=== PATIENT | female | born 1955 | race Caucasian/White ===

== ENCOUNTER 2018-03-14 16:21 | Observation (INO) | payer OTHER ==
[~2018-03-14] VITALS: Ht 167.6 cm; Wt 136.1 kg
[2018-03-14] MEDS ORDERED: IPRATROPIUM BROMIDE 0.02% 2.5 ML NEB NEB ONE (17:00)
[2018-03-14] MEDS ORDERED: LEVALBUTEROL HCL SOLN NEBU 1.25 MG/3 ML NEB INH ONE (17:00)
[2018-03-14] MEDS ORDERED: DEXAMETHASONE SOD PHOS 10 MG/1 ML VIAL IV ONE (17:00)
[2018-03-14] MEDS ORDERED: AZITHROMYCIN 500MG/NS 250 ML 250 ML IV STA (17:28)
[2018-03-14] MEDS ORDERED: CEFTRIAXONE SOD 1 GM VIAL IV NR (17:45)
[2018-03-14 18:07] LABS: BASOPHILS # (AUTO) 0.1 (0.0-0.1); BASOPHILS % 0.3 % (0.0-1.0); HEMATOCRIT 38.7 % (34.2-44.1); HEMOGLOBIN 12.4 g/dL (12.0-16.0); LYMPHOCYTES # (AUTO) 2.5 (1.0-3.2); LYMPHOCYTES % 15.4 % (18.0-39.1); MEAN CORPUSCULAR HEMOGLOBIN 29.3 pg (28-32); MEAN CORPUSCULAR VOLUME 91.5 fL (81-99); MONOCYTES # (AUTO) 0.7 (0.2-0.8); MONOCYTES % 4.3 % (4.4-11.3); NEUTROPHILS # (AUTO) 12.6 (2.1-6.9); NEUTROPHILS % 78.9 % (38.7-80.0); PLATELET COUNT 365 x10e3/uL (140-360); RED BLOOD COUNT 4.23 x10e6/uL (3.6-5.1); RED CELL DISTRIBUTION WIDTH 13.4 % (11.7-14.4)
--- NOTE | 2018-03-14 18:18 | Diagnostic Imaging Report ---
Examination: Single AP view of the chest. COMPARISON: None. INDICATION: Shortness of breath, severe exacerbation of asthma IMPRESSION: 1. Lines and Tubes: None 2. Lungs are grossly clear. No consolidation or effusion. 3. Cardiomediastinal silhouette is normal. Pulmonary vasculature is normal. 4. No acute bony abnormalities. Signed by: Dr. Paresh Kimball M.D. on 03/14/2018 6:15 PM
[2018-03-14 18:26] LABS: INR 0.83; PROTHROMBIN TIME 12.2 seconds (11.9-14.5)
[2018-03-14 18:27] LABS: ALANINE AMINOTRANSFERASE 15 IU/L (0-55); ALBUMIN 3.7 g/dL (3.5-5.0); ALBUMIN/GLOBULIN RATIO 1.2 (0.8-2.0); ALKALINE PHOSPHATASE 94 IU/L (40-150); ANION GAP 15.8 mmol/L (8-16); BLOOD UREA NITROGEN 20 mg/dL (7-26); BUN/CREATININE RATIO 20 (6-25); CALCIUM 9.7 mg/dL (8.4-10.2); CARBON DIOXIDE 26 mmol/L (22-29); CHLORIDE 101 mmol/L (98-107); CREATINE KINASE 86 IU/L (29-168); CREATININE, SERUM 1.02 mg/dL (0.57-1.11); EST GLOMERULAR FILTRATION RATE 55 ML/MIN (60-); GLUCOSE 204 mg/dL (74-118); MAGNESIUM 1.7 MG/DL (1.3-2.1); PARTIAL THROMBOPLASTIN TIME 26.5 seconds (23.8-35.5); POTASSIUM 3.8 mmol/L (3.5-5.1); SODIUM 139 mmol/L (136-145)
[2018-03-14] MEDS ORDERED: PAROXETINE HCL40 MG PO (18:31)
[2018-03-14] MEDS ORDERED: GLIMEPIRIDE4 MG PO (18:31)
[2018-03-14] MEDS ORDERED: SYMBICORT 16010.2 GM INH (18:31)
[2018-03-14] MEDS ORDERED: METFORMIN HCL500 M1 PO (18:31)
[2018-03-14] MEDS ORDERED: BUSPIRONE HCL15 MG PO (18:31)
[2018-03-14] MEDS ORDERED: LOSARTAN POTASS25 MG PO (18:31)
[2018-03-14] MEDS ORDERED: LEVEMIR SQ (18:31)
[2018-03-14] MEDS ORDERED: LEVOTHYROXINE200 MCG PO (18:31)
[2018-03-14] MEDS ORDERED: GEMFIBROZIL600 MG PO (18:31)
[2018-03-14] MEDS ORDERED: HUMALOG100 UNIT/1 SQ (18:31)
[2018-03-14] MEDS ORDERED: TRAZODONE HCL100 MG PO (18:31)
[2018-03-14 19:04] LABS: BILIRUBIN,URINE NEGATIVE (NEGATIVE); CLARITY,URINE SL CLOUDY (CLEAR); COLOR,URINE YELLOW (YELLOW); KETONES,URINE NEGATIVE (NEGATIVE); LEUKOCYTE ESTERASE ,URINE TRACE (NEGATIVE); NITRITE,URINE NEGATIVE (NEGATIVE); PROTEIN,URINE DIPSTICK NEGATIVE (NEGATIVE); URINE UROBILINOGEN 0.2 mg/dL (0.2 - 1)
[2018-03-14] MEDS ORDERED: SODIUM CHLORIDE 0.9% 1000ML 1,000 ML IV SCH (19:11)
[2018-03-14] MEDS ORDERED: AZITHROMYCIN 500MG/SOD CHL 0.9% 250ML BAG IV SCH (19:15)
[2018-03-14 19:18] LABS: BACTERIA,URINE RARE /HPF; EPITHELIAL CELLS,URINE RARE /LPF; WBC,URINE (MAN) 0-5 /HPF (0-5)
--- OUTSIDE RECORDS SUMMARY | 2018-03-14 19:27 | XMS REPORT ---
Author Author [facility] Address Unknown Phone Unavailable Care Team Providers Care Wallcovering Hanger Name Role Phone Meaghan SABILLON Unavailable Unavailable Problems This patient has no known problems. Allergies, Adverse Reactions, Alerts This patient has no known allergies or adverse reactions. Medications This patient has no known medications. Results Test Description Test Time Test Comments Text Results Atomic Results Result Comments CHEST SINGLE (PORTABLE) 2018-03-14 18:15:00 [place] [address] Patient Name: STUART GAMBOA MR #: [id number] : 1955 Age/Sex: 62/F Req #: [id number] Adm Physician: Ordered by: KJ SABILLON MD Report #: [id number] Location: ER Room/Bed: Procedure: [id number] DX/CHEST SINGLE (PORTABLE) Exam Date: 03/14/18 Exam Time: 1730 REPORT STATUS: Signed Examination: Single AP view of the chest. COMPARISON: None. INDICATION: Shortness of breath, severe exacerbation of asthma IMPRESSION: 1. Lines and Tubes: None 2. Lungs are grossly clear. No consolidation or effusion. 3. Cardiomediastinal silhouette is normal. Pulmonary vasculature is normal. 4. No acute bony abnormalities. Signed by: Dr. Jb Kimball M.D. on 03/14/2018 6:15 PM Dictated By: JB KIMBALL MD 14 Transcribed By: BRITTANY on 03/14/181814 COPY TO: KJ SABILLON MD
[2018-03-14] MEDS ORDERED: DEXTROSE 50% SYRINGE 50 ML IV PRN (19:30)
[2018-03-14] MEDS: INSULIN LISPRO 100 UNIT/1 ML 3ML VIAL SQ SCH (21:00)
[2018-03-14 21:15] VITALS: BP 148/71
[2018-03-14] MEDS: METHYLPREDNISOLONE SOD SUCC 125 MG/2ML VIAL IV SCH (22:00)
[2018-03-14] MEDS: ACETAMINOPHEN 325 MG TAB PO PRN (22:15)
[2018-03-14] MEDS ORDERED: INSULIN DETEMIR 100 UNIT/ML PEN SQ SCH (23:30)
[2018-03-14] MEDS ORDERED: INSULIN LISPRO 100 UNIT/1 ML 3ML VIAL SQ ONE (23:30)
[2018-03-15] VITALS (7 sets, daily range): BP systolic 144–198; BP diastolic 64–89
[2018-03-15] MEDS: METHYLPREDNISOLONE SOD SUCC 125 MG/2ML VIAL IV SCH (05:27)
[2018-03-15 05:51] LABS: BASOPHILS % 0.2 % (0.0-1.0); HEMATOCRIT 37.3 % (34.2-44.1); HEMOGLOBIN 12.1 g/dL (12.0-16.0); LYMPHOCYTES # (AUTO) 1.2 (1.0-3.2); LYMPHOCYTES % 7.9 % (18.0-39.1); MEAN CORPUSCULAR HEMOGLOBIN 29.2 pg (28-32); MEAN CORPUSCULAR HGB CONC 32.4 g/dL (31-35); MEAN CORPUSCULAR VOLUME 89.9 fL (81-99); MONOCYTES # (AUTO) 0.2 (0.2-0.8); NEUTROPHILS % 89.6 % (38.7-80.0); PLATELET COUNT 356 x10e3/uL (140-360); RED BLOOD COUNT 4.15 x10e6/uL (3.6-5.1); RED CELL DISTRIBUTION WIDTH 13.3 % (11.7-14.4)
[2018-03-15] MEDS: CEFTRIAXONE SOD 1 GM VIAL IV SCH (06:00)
[2018-03-15 06:02] LABS: CREATINE KINASE 90 IU/L (29-168)
[2018-03-15 06:31] LABS: ALBUMIN 3.6 g/dL (3.5-5.0); ALBUMIN/GLOBULIN RATIO 1.2 (0.8-2.0); ANION GAP 19.4 mmol/L (8-16); CALCIUM 9.7 mg/dL (8.4-10.2); CREATININE, SERUM 1.17 mg/dL (0.57-1.11); POTASSIUM 4.4 mmol/L (3.5-5.1)
[2018-03-15] MEDS: IPRATROPIUM BROMIDE 0.02% 2.5 ML NEB NEB SCH ×7 (07:00→23:05)
[2018-03-15] MEDS: LEVALBUTEROL HCL SOLN NEBU 0.63 MG/3 ML NEB INH SCH ×7 (07:15→23:05)
[2018-03-15] MEDS: INSULIN LISPRO 100 UNIT/1 ML 3ML VIAL SQ SCH ×7 (08:27→21:30)
[2018-03-15] MEDS: GLIMEPIRIDE 2 MG TAB PO SCH (08:31)
[2018-03-15] MEDS: METFORMIN HCL 500 MG TAB CR PO SCH (08:31)
[2018-03-15] MEDS ORDERED: NON-FORMULARY MEDICATION (Glimepiride 1 TAB) PO SCH (09:00)
[2018-03-15] MEDS ORDERED: LORAZEPAM INJ 2 MG/ML VIAL IV PRN (09:30)
[2018-03-15] MEDS ORDERED: METHYLPREDNISOLONE SOD SUCC 40 MG/ML VIAL IV SCH ×2 (09:30→21:00)
[2018-03-15] MEDS ORDERED: HYDRALAZINE HCL 20 MG/ML VIAL IV PRN (09:30)
[2018-03-15] MEDS: LOSARTAN POTASSIUM 25 MG TAB PO SCH (09:38)
[2018-03-15] MEDS: GEMFIBROZIL 600 MG TAB PO SCH (09:45)
[2018-03-15] MEDS ORDERED: HYDROCHLOROTHIAZIDE 25 MG TAB PO SCH (09:45)
[2018-03-15] MEDS: METHYLPREDNISOLONE SOD SUCC 40 MG/ML VIAL IV SCH ×3 (10:45→21:31)
[2018-03-15] MEDS ORDERED: INSULIN LISPRO 12 UNIT SQ SCH (11:30)
[2018-03-15 14:14] LABS: CREATINE KINASE 99 IU/L (29-168)
[2018-03-15] MEDS: AZITHROMYCIN 500MG/NS 250 ML 250 ML IV SCH (16:13)
[2018-03-15] MEDS: FAMOTIDINE 20 MG TAB PO SCH (16:13)
[2018-03-15] MEDS: ACETAMINOPHEN 325 MG TAB PO PRN (17:30)
[2018-03-15] MEDS ORDERED: BUSPIRONE HCL PO SCH (21:00)
[2018-03-15] MEDS ORDERED: PAROXETINE HCL 40 MG PO SCH (21:00)
[2018-03-15] MEDS ORDERED: BUSPIRONE HCL 10 MG TABLET PO SCH (21:00)
[2018-03-15] MEDS ORDERED: TRAZODONE HCL 50 MG TAB PO SCH (21:00)
[2018-03-15] MEDS ORDERED: INSULIN DETEMIR SQ SCH (21:00)
[2018-03-15] MEDS ORDERED: PAROXETINE HCL 20 MG TAB PO SCH (21:00)
[2018-03-15] MEDS ORDERED: NON-FORMULARY MEDICATION (Trazodone Hcl 100 MG) PO SCH (21:00)
[2018-03-15] MEDS ORDERED: INSULIN DETEMIR 100 UNIT/ML PEN SQ SCH (21:00)
[2018-03-16] VITALS: BP 127/92
[2018-03-16] MEDS: LEVALBUTEROL HCL SOLN NEBU 0.63 MG/3 ML NEB INH SCH ×3 (02:55→12:15)
[2018-03-16] MEDS: IPRATROPIUM BROMIDE 0.02% 2.5 ML NEB NEB SCH ×3 (02:55→12:30)
[2018-03-16 04:00] VITALS: BP 131/59
[2018-03-16 05:14] LABS: BASOPHILS % 0.2 % (0.0-1.0); HEMATOCRIT 37.9 % (34.2-44.1); LYMPHOCYTES # (AUTO) 0.8 (1.0-3.2); LYMPHOCYTES % 7.3 % (18.0-39.1); MEAN CORPUSCULAR HEMOGLOBIN 28.8 pg (28-32); MEAN CORPUSCULAR HGB CONC 31.7 g/dL (31-35); MEAN CORPUSCULAR VOLUME 90.9 fL (81-99); MONOCYTES # (AUTO) 0.5 (0.2-0.8); MONOCYTES % 4.4 % (4.4-11.3); NEUTROPHILS # (AUTO) 9.5 (2.1-6.9); NEUTROPHILS % 86.6 % (38.7-80.0); PLATELET COUNT 354 x10e3/uL (140-360); RED BLOOD COUNT 4.17 x10e6/uL (3.6-5.1); RED CELL DISTRIBUTION WIDTH 13.7 % (11.7-14.4)
[2018-03-16 05:33] LABS: ANION GAP 14.2 mmol/L (8-16); CALCIUM 9.8 mg/dL (8.4-10.2); CREATININE, SERUM 1.33 mg/dL (0.57-1.11); MAGNESIUM 2.2 MG/DL (1.3-2.1)
[2018-03-16 05:43] LABS: B-TYPE NATRIURETIC PEPTIDE2 111.2 pg/mL (0-100)
[2018-03-16 06:00] LABS: POTASSIUM 5.2 mmol/L (3.5-5.1)
[2018-03-16] MEDS ORDERED: LEVOTHYROXINE SODIUM 100 MCG TAB PO SCH (06:00)
[2018-03-16] MEDS: METHYLPREDNISOLONE SOD SUCC 40 MG/ML VIAL IV SCH (06:20)
[2018-03-16] MEDS: CEFTRIAXONE SOD 1 GM VIAL IV SCH (06:20)
[2018-03-16 06:28] LABS: FREE T4 (FREE THYROXINE) 0.72 ng/dL (0.9-1.8); THYROID STIMULATING HORMONE 1.01 uIU/mL (0.350-4.940)
[2018-03-16] MEDS: INSULIN LISPRO 100 UNIT/1 ML 3ML VIAL SQ SCH ×4 (07:30→12:07)
[2018-03-16] MEDS ORDERED: GLIMEPIRIDE 2 MG TAB PO SCH (07:30)
[2018-03-16] MEDS: GLIMEPIRIDE 2 MG TAB PO SCH (08:00)
[2018-03-16] MEDS: FAMOTIDINE 20 MG TAB PO SCH (08:00)
[2018-03-16 08:01] VITALS: BP 186/73
[2018-03-16] MEDS: LOSARTAN POTASSIUM 25 MG TAB PO SCH (08:09)
[2018-03-16] MEDS: METFORMIN HCL 500 MG TAB CR PO SCH (08:10)
[2018-03-16] MEDS: GEMFIBROZIL 600 MG TAB PO SCH (08:10)
[2018-03-16] MEDS ORDERED: SOD POLYSTYRENE SULFONATE SUSP 15 GM/60 ML BTL PO ONE (08:45)
[2018-03-16] MEDS ORDERED: CEFTIN PO (08:58)
[2018-03-16] MEDS ORDERED: PREDNISONE20 MG PO (08:58)
[2018-03-16] MEDS ORDERED: ZITHROMAX500 MG PO (08:58)
[2018-03-16] MEDS ORDERED: NON-FORMULARY MEDICATION (Levothyroxine Sodium 1 TAB) PO SCH (09:00)
[2018-03-16] MEDS ORDERED: HYDROCHLOROTHIAZIDE 25 MG TAB PO SCH (09:00)
[2018-03-16 10:41] VITALS: BP 186/73
[2018-03-16 11:28] VITALS: BP 140/60
[2018-03-16] MEDS: AZITHROMYCIN 500MG/NS 250 ML 250 ML IV SCH (12:07)
--- NOTE | 2018-03-17 04:34 | Discharge Summary ---
ADMISSION DIAGNOSES 1. Acute exacerbation of asthma. 2. Type 2 diabetes. 3. Hypertension. 4. Hyperlipidemia. 5. Hypothyroidism. 6. Acute kidney injury. 7. Elevated brain natriuretic peptide. 8. Bilateral lower extremity edema. 9. Anxiety. 10. Morbid obesity. DISCHARGE DIAGNOSES 1. Acute exacerbation of asthma. 2. Type 2 diabetes. 3. Hypertension. 4. Hyperlipidemia. 5. Hypothyroidism. 6. Acute kidney injury. 7. Elevated brain natriuretic peptide. 8. Bilateral lower extremity edema. 9. Anxiety. 10. Morbid obesity. 11. Hyperkalemia. HISTORY: Patient has a history of left arm lipoma excision, bilateral cataract surgery, cholecystectomy, and I and D of an abdominal abscess. FAMILY HISTORY: Patient's father has diabetes. SOCIAL HISTORY: Patient denies alcohol, tobacco and illicit drug use. MEDICAL HISTORY: Patient has a history of type 2 diabetes, hypothyroidism, hypertension, hyperlipidemia, and asthma. HOSPITAL COURSE: A 62-year-old female complained of shortness of breath and wheezing that began Wednesday. She was getting over a cold, and had a steroid script so she took it. On Wednesday, the symptoms worsened, so she went to [facility] where she had a temp of a little over 99. Symptoms are better with steroids, but not worsened by anything. The bilateral lower extremity swelling began Wednesday. She usually tap dances, so she is not sure where the swelling came from. She denies any cardiac history. On admission, the patient was started on Zithromax, Rocephin, IV steroids, and nebs. Home meds for diabetes, hypertension, hyperlipidemia, hypothyroidism. Patient increased p.o. fluids for acute kidney injury. The patient had an echo done that showed an EF of 40% to 45%, preliminary report. EKG showed normal sinus rhythm. Chest x-ray showed no bony abnormalities. No consolidation or effusion. Pulmonary vasculature is normal. Blood cultures negative. Urine culture negative. The patient was found to be hyperkalemic at 5.2, and was given a dose of Kayexalate prior to discharge. Vital signs stable. Patient afebrile. Patient will discharge home with Zithromax and prednisone. Patient is to follow up with her primary care doctor tomorrow as scheduled previously. Patient understands discharge instructions and agrees to plan. DICTATED BY BONNIE WISEMAN NP JORGE HU MD Job#: [id number] [place]
== END 2018-03-16 14:58 | disposition home or self-care (01) ==
LOC: ER 16:21 → ERHOLD 19:24 → IMCU 21:03
PROVIDERS: ADMIT Internal Medicine; ATTEND Internal Medicine
DX: J45.31 Mild persistent asthma with (acute) exacerbation (principal); E11.9 Type 2 diabetes mellitus without complications; N17.9 Acute kidney failure, unspecified; E03.9 Hypothyroidism, unspecified; I10 Essential (primary) hypertension; E78.5 Hyperlipidemia, unspecified; F41.9 Anxiety disorder, unspecified; E66.01 Morbid (severe) obesity due to excess calories; Z83.3 Family history of diabetes mellitus; E87.5 Hyperkalemia
CPT/HCPCS: 36415 ×3; 71045; 80048; 80053 ×2; 81001; 82550 ×2; 82553 ×2; 82948 ×3; 83036; 83735 ×2; 83880 ×2; 84439; 84443; 84484 ×2; 85025 ×3; 85379; 85610; 85730; 87040; 87086; 93005; 93306; 94640 ×4; 96372; 99284; G0378 ×3; J0456 ×3; J0696 ×3; J1100; J2920 ×2; J2930; J7030

== ENCOUNTER 2021-07-14 15:38 | Emergency (ER) | payer OTHER ==
[~2021-07-14] VITALS: Ht 167.6 cm; Wt 136.1 kg
[~2021-07-14 15:38] MED LIST: BUSPIRONE HCL15 MG PO; CEFTIN PO; GEMFIBROZIL600 MG PO; GLIMEPIRIDE4 MG PO; HUMALOG100 UNIT/1 SQ; LEVEMIR SQ; LEVOTHYROXINE200 MCG PO; LOSARTAN POTASS25 MG PO; METFORMIN HCL500 M1 PO; PAROXETINE HCL40 MG PO; PREDNISONE20 MG PO; SYMBICORT 16010.2 GM INH; TRAZODONE HCL100 MG PO; ZITHROMAX500 MG PO
[2021-07-14] MEDS ORDERED: IBUPROFEN 400 MG TAB PO ONE (16:00)
[2021-07-14] MEDS ORDERED: IBUPROFEN600 MG PO (17:40)
== END 2021-07-14 17:56 | disposition home or self-care (01) ==
LOC: ER 15:46
DX: S93.602A Unspecified sprain of left foot, initial encounter (principal); X50.1XXA Overexertion from prolonged static or awkward postures, initial encounter; Y93.89 Activity, other specified; Y92.89 Other specified places as the place of occurrence of the external cause; E11.9 Type 2 diabetes mellitus without complications; E03.9 Hypothyroidism, unspecified; F41.9 Anxiety disorder, unspecified; J45.909 Unspecified asthma, uncomplicated
CPT/HCPCS: 99283